=== PATIENT | female | born 1985 | race Caucasian/White ===

== ENCOUNTER 2017-09-22 14:25 | Emergency (ER) | payer MEDICAID ==
[~2017-09-22] VITALS: Ht 152.4 cm; Wt 90.7 kg
[~2017-09-22 14:25] MED LIST: IBUPROFEN 800800 M1 PO; LIORESAL 10 MG10 MG PO; ZOFRAN ODT4 MG PO
[2017-09-22] MEDS ORDERED: VITAMINS (15:02)
[2017-09-22 15:15] LABS: URINE BILIRUBIN NEGATIVE (Negative); URINE BLOOD NEGATIVE (Negative); URINE CLARITY CLEAR; URINE COLOR YELLOW; URINE GLUCOSE-RANDOM NEGATIVE (Negative); URINE KETONES NEGATIVE (Negative); URINE LEUKOCYTES TRACE (Negative); URINE NITRITE NEGATIVE (Negative); URINE PROTEIN NEGATIVE (Negative); URINE SPECIFIC GRAVITY >= 1.030 (1.005-1.030); URINE UROBILINOGEN 0.2 E.U./dl (0.2-1.0)
[2017-09-22 15:26] LABS: BACTERIA >30 Many /HPF (None Seen); CASTS None Seen /LPF (None Seen); CRYSTALS None Seen /LPF (None Seen); MUCUS 4-6 Moderate strn/LPF (None Seen); SQUAMOUS >10 Many /LPF (0-3); URINE RBC 0-2 Rare /HPF (0-2); URINE WBC 0-5 Rare /HPF (0-5)
[2017-09-22] MEDS ORDERED: KEFLEX500 M1 PO (16:33)
[2017-09-22] MEDS ORDERED: PYRIDIUM100 M1 PO (16:34)
[2017-09-22] MEDS ORDERED: FLAGYL500 MG PO (16:54)
[2017-09-22 17:54] VITALS: BP 132/76
== END 2017-09-22 17:55 | disposition home or self-care (01) ==
LOC: M.ERS 14:25
PROVIDERS: Nurse Practitioner Family
DX: N30.01 Acute cystitis with hematuria (principal); N76.0 Acute vaginitis

== ENCOUNTER 2017-12-29 15:33 | Emergency (ER) | payer MEDICAID ==
[~2017-12-29] VITALS: Ht 167.6 cm; Wt 90.7 kg
[~2017-12-29 15:33] MED LIST changes: +FLAGYL500 MG PO; +KEFLEX500 M1 PO; +PYRIDIUM100 M1 PO; +VITAMINS
[2017-12-29] MEDS ORDERED: CELEXA10 MG PO (15:46)
[2017-12-29] MEDS ORDERED: ROBAXIN500 MG PO (16:56)
[2017-12-29 17:08] VITALS: BP 115/70
== END 2017-12-29 17:12 | disposition home or self-care (01) ==
LOC: M.ERS 15:33
DX: S00.03XA Contusion of scalp, initial encounter (principal); S16.1XXA Strain of muscle, fascia and tendon at neck level, initial encounter; W22.8XXA Striking against or struck by other objects, initial encounter; Y93.89 Activity, other specified; Y92.89 Other specified places as the place of occurrence of the external cause; Y99.8 Other external cause status

== ENCOUNTER 2018-04-11 12:45 | Emergency (ER) | payer MEDICAID ==
[~2018-04-11] VITALS: Ht 160 cm; Wt 90.7 kg
[~2018-04-11 12:45] MED LIST changes: +CELEXA10 MG PO; +ROBAXIN500 MG PO
[2018-04-11 13:09] LABS: URINE BILIRUBIN NEGATIVE (Negative); URINE BLOOD NEGATIVE (Negative); URINE CLARITY CLEAR; URINE COLOR YELLOW; URINE GLUCOSE-RANDOM NEGATIVE (Negative); URINE KETONES NEGATIVE (Negative); URINE LEUKOCYTES-REFLEX NEGATIVE (Negative); URINE NITRITE-REFLEX NEGATIVE (Negative); URINE PROTEIN NEGATIVE (Negative); URINE SPECIFIC GRAVITY >= 1.030 (1.005-1.030); URINE UROBILINOGEN 0.2 E.U./dl (0.2-1.0)
[2018-04-11 15:02] VITALS: BP 108/66
== END 2018-04-11 15:04 | disposition home or self-care (01) ==
LOC: M.ERS 12:45
PROVIDERS: Nurse Practitioner Family
DX: R10.2 Pelvic and perineal pain (principal)

== ENCOUNTER 2018-10-21 21:19 | Emergency (ER) | payer MEDICAID ==
[~2018-10-21] VITALS: Ht 172.7 cm; Wt 99.8 kg
[2018-10-21 22:14] VITALS: BP 118/72
== END 2018-10-21 22:14 | disposition home or self-care (01) ==
LOC: M.ERS 21:19
DX: M79.631 Pain in right forearm (principal)

== ENCOUNTER 2019-09-12 12:59 | Emergency (ER) | payer MEDICAID ==
[~2019-09-12] VITALS: Ht 160 cm; Wt 92.5 kg
[~2019-09-12 12:59] MED LIST changes: +ONDANSETRON HCL4 M2 PO
[2019-09-12 13:09] VITALS: BP 115/91
[2019-09-12] MEDS ORDERED: NYSTATIN 100,0015 G1 TOP (13:25)
== END 2019-09-12 13:30 | disposition home or self-care (01) ==
LOC: M.ERS 12:59
DX: B37.9 Candidiasis, unspecified (principal); Z88.6 Allergy status to analgesic agent; Z88.8 Allergy status to other drugs, medicaments and biological substances

== ENCOUNTER 2019-09-29 16:51 | Emergency (ER) | payer MEDICAID ==
[~2019-09-29] VITALS: Ht 157.5 cm; Wt 94.3 kg
[~2019-09-29 16:51] MED LIST changes: +NYSTATIN 100,0015 G1 TOP
[2019-09-29 18:05] LABS: ABSOLUTE LYMPHOCYTES 0.8 thou/uL (0.8-5.3); ABSOLUTE MONOCYTES 0.8 thou/uL (0.0-1.2); ABSOLUTE NEUTROPHILS 3.4 thou/uL (1.6-8.1); BASOPHILS 0.5 %; EOSINOPHILS 0.1 %; HEMATOCRIT 38.1 % (37.0-47.0); HEMOGLOBIN 13.1 gm/dL (12.0-15.0); LYMPHOCYTES 16.3 %; MCH 28.9 pg (26.0-34.0); MCHC 34.3 g/dL (28.0-37.0); MCV 84.4 fL (80.0-100.0); MONOCYTES 16.4 %; MPV 10.1 fl. (7.2-11.1); NUCLEATED RBCS 0 /100WBC; PLATELET COUNT* 187 thou/uL (150-400); POLYS 66.7 %; RBC 4.51 mil/uL (4.20-5.00); RDW-CV 12.7 % (10.5-14.5)
[2019-09-29 18:14] LABS: CALCIUM 8.1 mg/dL (8.5-10.1); CREATININE 0.7 mg/dL (0.6-1.3); POTASSIUM 3.6 mmol/L (3.5-5.1)
[2019-09-29 18:19] LABS: ALBUMIN 3.8 g/dL (3.4-5.0); TOTAL BILIRUBIN 0.5 mg/dL (<0.1-1.0); TOTAL PROTEIN 7.8 g/dL (6.4-8.2)
[2019-09-29 19:19] LABS: INFLUENZA A ANTIGEN Negative (Negative); INFLUENZA B ANTIGEN Negative (Negative)
[2019-09-29 19:31] LABS: URINE BILIRUBIN NEGATIVE (Negative); URINE BLOOD TRACE (Negative); URINE CLARITY CLEAR; URINE COLOR YELLOW; URINE GLUCOSE-RANDOM NEGATIVE (Negative); URINE KETONES TRACE (Negative); URINE LEUKOCYTES-REFLEX NEGATIVE (Negative); URINE NITRITE-REFLEX NEGATIVE (Negative); URINE PROTEIN NEGATIVE (Negative); URINE SPECIFIC GRAVITY 1.015 (1.005-1.030); URINE UROBILINOGEN 0.2 E.U./dl (0.2-1.0)
[2019-09-29] MEDS ORDERED: TESSALON PERLE100 MG PO (19:43)
[2019-09-29] MEDS ORDERED: ONDANSETRON ODT4 MG PO (19:43)
[2019-09-29] MEDS ORDERED: PROMETHAZI6.25 MG/5 PO (19:43)
[2019-09-29] MEDS ORDERED: IBUPROFEN 600600 M1 PO (19:43)
[2019-09-29 19:56] VITALS: BP 123/65
== END 2019-09-29 19:56 | disposition home or self-care (01) ==
LOC: M.ERS 16:51
PROVIDERS: Physician Assistant
DX: R11.2 Nausea with vomiting, unspecified (principal); R19.7 Diarrhea, unspecified; R05 Cough; Z88.6 Allergy status to analgesic agent; Z88.8 Allergy status to other drugs, medicaments and biological substances

== ENCOUNTER 2020-07-29 01:30 | Emergency (ER) | payer MEDICAID ==
[~2020-07-29] VITALS: Ht 154.9 cm; Wt 97.5 kg
[~2020-07-29 01:30] MED LIST changes: +IBUPROFEN 600600 M1 PO; +ONDANSETRON ODT4 MG PO; +PROMETHAZI6.25 MG/5 PO; +TESSALON PERLE100 MG PO
[2020-07-29] MEDS ORDERED: INDERAL LA120 M1 PO (01:47)
[2020-07-29] MEDS ORDERED: AMITRIPTYLINE H25 M3 PO (01:48)
[2020-07-29 02:30] LABS: URINE BILIRUBIN NEGATIVE (Negative); URINE BLOOD NEGATIVE (Negative); URINE CLARITY CLEAR; URINE COLOR YELLOW; URINE GLUCOSE-RANDOM NEGATIVE (Negative); URINE KETONES NEGATIVE (Negative); URINE LEUKOCYTES-REFLEX NEGATIVE (Negative); URINE NITRITE-REFLEX NEGATIVE (Negative); URINE PROTEIN NEGATIVE (Negative); URINE SPECIFIC GRAVITY >= 1.030 (1.005-1.030); URINE UROBILINOGEN 0.2 E.U./dl (0.2-1.0)
[2020-07-29 02:40] LABS: AMP/METHAMP Negative (Negative); BARBITURATES Negative (Negative); BENZODIAZEPINES Negative (Negative); COCAINE Negative (Negative); METHADONE Negative (Negative); OPIATES Negative (Negative); PCP Negative (Negative); THC Negative (Negative)
[2020-07-29 03:23] VITALS: BP 102/57
--- NOTE | 2020-07-29 12:51 | EKG ---
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: VICNETE Marcelo : 1985 Requested By: Radha Sheehan Order Number: [id number] MD: Keagan Ugarte Measurements Intervals [place] Rate: 71 P: 26 MN: 143 QRS: -10 QRSD: 91 T: 17 QT: 382 QTc: 416 Interpretive Statements Sinus rhythm Low voltage, precordial leads No previous ECG available for comparison Electronically Signed On 07-29-2020 12:51:40 [employer] by Keagan Ugarte [email or web address] <ELECTRONICALLY SIGNED> By: Keagan Ugarte MD, [facility] 07/29/20 1251 7 7 Keagan Ugarte MD, FACC /EPI
== END 2020-07-29 03:24 | disposition home or self-care (01) ==
LOC: M.ERS 01:30
PROVIDERS: Emergency Medicine
DX: F41.9 Anxiety disorder, unspecified (principal); Z88.6 Allergy status to analgesic agent; Z88.8 Allergy status to other drugs, medicaments and biological substances; Z79.899 Other long term (current) drug therapy